=== PATIENT | female | born 1965 | race Caucasian/White ===

== ENCOUNTER 2025-09-12 20:05 | Emergency (ER) | payer OTHER, SELFPAY ==
[2025-09-12 20:12] VITALS: BP 127/78; PULSE 84; RESP 18; TEMP 36.7; O2SAT 100; BMI 23.7
[2025-09-12] MEDS: PROPARACAINE 0.5% OPHTH SOL 1 DROPS EYE-BOTH (20:41)
[2025-09-12] MEDS: FLUORESCEIN 1 MG STRIP EYE-BOTH (20:41)
--- NOTE | 2025-09-12 21:34 | ED_ITS ---
HPI - Eye Problem General Chief complaint: Eye Problems Stated complaint: redness/inflammation in eyes, tearing x10 hrs Time Seen by Provider: 09/12/25 20:21 Source: patient Mode of arrival: Ambulatory History of Present Illness HPI Narrative: 60-year-old female visiting the area from home [facility], after arrival on her flight she was changing out her contacts, on the right side had irritation and increasing redness, took the contact out, using the same solution, and same brand of context, no problems on the asymptomatic left side with same procedure used. She would not remember scratching or injury her eye, no foreign body like sensation. No discharge. Related Data Previous Rx's ?Medication ?Instructions ?Recorded erythromycin 5 mg/gram (0.5 %) eye 1 applic EYE-LEFT T ID eye 09/12/25 ointment infection 7 days #3.5 grams Allergies Allergy/AdvReac Type Severity Reaction Status Date / Time Sulfa (Sulfonamide Allergy blister Verified 09/12/25 20:12 Antibiotics) Patient History Social History Smoking Status: Current some day smoker Smoking Status: Current some day smoker Exam Narrative Exam Narrative: GENERAL: Well-developed patient, in mild distress. HEAD: Atraumatic. Normocephalic. EYES: Pupils equal round and reactive. Extraocular motions intact. Sclerae injected on the right side, without obvious discharge. Pupils equal and conjugate. Right eye local proparacaine topical anesthetic, then fluorescein contrast, small right eye corneal abrasion without flow or collapse of anterior chamber obvious, no visible foreign body. Scant mucoid flex here and there. ENT: No obvious craniofacial swelling, eyelids not swollen. NECK: Trachea midline. Non tender CARDIOVASCULAR: Regular rate and rhythm without murmurs, gallops, or rubs. RESPIRATORY: Clear to auscultation. Breath sounds equal bilaterally. No wheezes, rales, or rhonchi. GASTROINTESTINAL: Abdomen soft, non-tender, nondistended. EXTREMITIES: No edema or joint tenderness. BACK: Nontender without deformity or crepitance. No flank tenderness. NEURO: AOx3. Motor functions grossly nonfocal. SKIN: No rash or erythema of visible areas Initial Vital Signs Initial Vital Signs: Vital Signs Temperature 98.0 F 09/12/25 20:12 Pulse Rate 84 09/12/25 20:12 Respiratory Rate 18 09/12/25 20:12 Blood Pressure 127/78 09/12/25 20:12 Pulse Oximetry 100 09/12/25 20:12 Oxygen Delivery Method Room Air 09/12/25 20:12 Course Orders Ordered: Discontinued Medications Hydrocodone Bitart/Acetaminophen (Hydrocodone/Acet 5/325 Prepack) 1 bottle MISC DIRECTED ONE Stop: 09/12/25 22:52 Last Admin: 09/12/25 23:01 Dose: 1 bottle Documented By: ROLAND Erythromycin (Erythromycin Ophth 1 Gm Oint) 1 applic EYE-RIGHT NOW ONE Stop: 09/12/25 22:10 Last Admin: 09/12/25 22:20 Dose: 1 applic Documented By: DELON Fluorescein Sodium (Fluorescein 1 Mg Strip) 1 mg EYE-BOTH NOW ONE Stop: 09/12/25 20:35 Last Admin: 09/12/25 20:41 Dose: 1 mg Documented By: BRIAN Proparacaine HCl (Proparacaine 0.5% Ophth Jennifer) 1 drops EYE-BOTH NOW ONE Stop: 09/12/25 20:35 Last Admin: 09/12/25 20:41 Dose: 2 drop Documented By: BRIAN Vital Signs Vital signs: Vital Signs - 8 hr 09/12/25 20:12 09/12/25 22:45 Temperature 98.0 F 99 F Pulse Rate 84 71 Respiratory Rate 18 16 Blood Pressure 127/78 113/75 Pulse Oximetry 100 96 Oxygen Delivery Method Room Air Room Air MDM - Eye Problem MDM Narrative Medical decision making narrative: Corneal abrasion right side, after removing her contact lenses on travel from [place] to visit family over . Right eye redness. Proparacaine fluorescein exam, small corneal abrasion nasal aspect. Erythromycin ointment package given, prescription sent to her requested pharmacy local to [facility] in the morning. Contact information given for local eye clinic [facility] [place] on Tuesday tomorrow non holiday post , if she can be seen there at that time, otherwise advised recheck on her return to home [facility] on Tuesday. Symptoms improved. Advised to take topical antibiotic as directed. Return precautions discussed. Dispensed home pack of Decadron/acetaminophen to use if needed. Last tetanus shot less than 5 years ago. Discharge Plan Departure Patient Disposition: Home Clinical Impression: Corneal abrasion Instructions: DI for Corneal Abrasion Activity Restrictions/Additional Instructions: Right eye irritation and redness, use of contacts during recent travel, on examination after numbing drops and fluorescein contrast, there is a small abrasion to the nasal aspect of the right cornea. May use antibiotic ointment to help prevent infection. Consider recheck in eye clinic tomorrow if you are still in town, otherwise on Tuesday on returned to your home [facility]. Contact information given for local ophthalmology clinic providers, if they are open tomorrow Tuesday over this weekend. Apply antibiotic ointment to the affected eye 3 times daily until seen by eye clinic, or for the next week. Home pack of some pain medication given in if needed, for control of right eye pain. Return earlier to this/nearest emergency department for any change worsening symptoms or any concerns prior. Prescriptions: New erythromycin 5 mg/gram (0.5 %) ointment 1 applic EYE-LEFT TID 7 Days Qty: 3.5 0RF Referrals: Smita Rogers MD [Physician, Ophthalmology] Prince Mcrae MD [Physician, Ophthalmology] Stand Alone Forms: Patient Portal/API
[2025-09-12] MEDS: ERYTHROMYCIN OPHTH 1 GM OINT 1 APPLIC EYE-RIGHT (22:20)
[2025-09-12 22:45] VITALS: BP 113/75; PULSE 71; RESP 16; TEMP 37.2; O2SAT 96
== END 2025-09-12 23:03 | disposition home or self-care (01) ==
PROVIDERS: Emergency Provider Emergency Medicine
DX: H18.821 Corneal disorder due to contact lens, right eye (principal)
CPT/HCPCS: 99282